=== PATIENT | male | born 1970 | race Two or more races ===

== ENCOUNTER 2025-09-13 23:56 | Emergency (ER) | payer SELFPAY ==
[~2025-09-13] VITALS: Ht 157.5 cm; Wt 58.1 kg
--- NOTE | 2025-09-14 00:20 | ECG ---
[facility] Test Date: 2025-09-14 Test Time: 00:05:28 Pat Name: ANTHONY VALVERDE Department: ED Room: Gender: Wafer Fabrication Operator: : 1970 Requested By: TRISTEN GONZALEZ Order Number: [id number] Reading MD: Rubens Crowley Measurements Intervals [place] Rate: 65 P: 54 GA: 154 QRS: 59 QRSD: 103 T: 62 QT: 381 QTc: 397 Interpretive Statements Sinus rhythm ST elevation suggests acute pericarditis Electronically Signed On 09-16-2025 17:18:42 PST by Rubens Crowley Please click the below link to view image of tracing.
--- NOTE | 2025-09-14 00:22 | ED.PDOC ---
History of Present Illness HPI Comments 54-year-old male who came to ER for chest pains. Patient states 30 minutes prior to arrival, while at bed, patient's noted that the patients arm has been extending upwards, his eyes rolling backwards and his jaw going sideways. Patient states he was awake when this happened and he is fully aware of it. P atient also complaining of left sided chest pains radiating to his left arm. Patient states he had similar symptoms 25 years ago, and he was diagnosed of a heart attack. REVIEW OF SYSTEMS: General: No fever, no chills, or fatigue HEENT: No sore throat, no earache, no congestion, no neck pain. Cardiac: + chest pain. No palpitations. Lungs: + shortness of breath, no cough. GI: No nausea, no vomiting, no diarrhea, no constipation, no abdominal pain : No dysuria, frequency, or urgency. No hematuria. Musculoskeletal: No joint pain , no joint swelling, no extremity edema. Skin: No rash, no itching. Neuro: No headache, no dizziness, no weakness (And as sated in HPI) PHYSICAL EXAM: General: Awake, alert and oriented. No acute distress. Skin: Skin in warm, dry and intact. Appropriate color for ethnicity. HEENT: The head is normocephalic and atraumatic. Conjunctivae are clear without exudates or hemorrhage. Sclera is non-icteric. Eyelids are normal in appearance without swelling or lesions. Oral mucosa is pink and moist Neck: The neck is supple with normal range of motion. No JVD. Cardiac: Heart rate and rhythm are normal. No murmurs, gallops, or rubs are auscultated. Respiratory: No signs of respiratory distress. Lung sounds are clear in all lobes bilaterally without rales, rhonchi, or wheezes. Abdominal: Abdomen is soft, non-tender without distention, guarding or rigidity. Bowel sounds are present and normoactive in all four quadrants. Extremities: Lower extremities without edema. Neurological: The patient is awake, alert and oriented to person, place, and time with normal speech. Speech is clear. There is no facial asymmetry. Normal gait Psychiatric: Appropriate mood and affect. Good judgement and insight. Chief Complaint: Chest Pain Time Seen by MD: 00:22 Reviewed Notes: Nurses Notes Allergies: Coded Allergies: NO KNOWN ALLERGIES (Unverified , 09/14/25) Information Source: Patient Mode of Arrival: Ambulatory Past Medical History PAST MEDICAL HISTORY: [place] Surgical History: Denies all surgeries Family History Family History: Reviewed,noncontributory to illness Social History Smoker: Non-Smoker Alcohol: Denies ETOH Use Drugs: Denies Drug Use Lives In: Home Was a procedure done? Was a procedure done?: No EKG EKG : Pulse Rate (adult): 65 Cardiac Rhythm: NSR Comments No STEMI Differential Dx Considerations may include: Differential diagnoses considered include acute ischemic coronary syndrome, aortic dissection, cardiac tamponade, mediastinitis, pulmonary embolus, pneumothorax, tension pneumothorax, esophageal rupture, coronary artery vasospasm, myocarditis, pericarditis, pneumonia, pulmonary edema, esophageal tear, pancreatitis, aortic stenosis, dilated cardiomyopathy, hypertrophic cardiomyopathy, mitral valve prolapse, malignancy, pleuritis, pneumomediastinum, primary pulmonary hypertension, cholecystitis, esophageal spasm, esophagus, gastritis, GERD, peptic ulcer disease, costochondritis, fibromyalgia, rib fracture, herpes zoster, radicular syndromes, thoracic outlet syndrome, somatization. X-Ray, Labs, Meds, VS Vital Signs Date Time Temp Pulse Resp B/P (MAP) Pulse Ox O2 Delivery O2 Flow Rate FiO2 09/14/25 04:42 63 18 09/14/25 04:40 97.6 63 18 92/61 (71) 96 97.6 09/14/25 01:24 74 20 99/60 (73) 100 09/14/25 01:11 60 09/14/25 00:22 65 09/14/25 00:05 65 09/14/25 00:01 75 16 113/72 98 Lab Test 09/14/25 02:52 09/14/25 01:14 09/14/25 00:09 Range/Units Troponin I High Sensitivity < 3 L < 3 L < 3 L </=54 ng/L White Blood Count 6.8 4.4-10.8 10^3/uL Red Blood Count 5.06 4.5-5.90 10^6/uL Hemoglobin 15.7 13.5-17.5 g/dL Hematocrit 46.9 41.0-53.0 % Mean Corpuscular Volume 92.6 80.0-100.0 fL Mean Corpuscular Hemoglobin 31.1 28.0-32.0 pg Mean Corpuscular Hemoglobin Concent 33.6 32.0-36.0 g/dL Red Cell Distribution Width 13.3 11.8-14.3 % Platelet Count 226 140-450 10^3/uL Mean Platelet Volume 7.6 6.9-10.8 fL Neutrophils (%) (Auto) 41.5 37.0-80.0 % Lymphocytes (%) (Auto) 38.7 10.0-50.0 % Monocytes (%) (Auto) 9.4 0.0-12.0 % Eosinophils (%) (Auto) 9.4 H 0.0-7.0 % Basophils (%) (Auto) 1.0 0.0-2.0 % Neutrophils # (Auto) 2.8 1.6-8.6 10 ^3/uL Lymphocytes # (Auto) 2.7 0.4-5.4 10 ^3/uL Monocytes # (Auto) 0.6 0-1.3 10 ^3/uL Eosinophils # (Auto) 0.6 0-0.8 10 ^3/uL Basophils # (Auto) 0.1 0-0.2 10 ^3/uL Nucleated Red Blood Cells 0.1 % Sodium Level 139 136-145 mmol/L Potassium Level 3.6 3.5-5.1 mmol/L Chloride Level 104 98-107 mmol/L Carbon Dioxide Level 30 20-31 mmol/L Anion Gap 5 5-15 Blood Urea Nitrogen 9 9-23 mg/dL Creatinine 0.87 0.700-1.30 mg/dL Glomerular Filtration Rate Calc 103 >90 mL/min BUN/Creatinine Ratio 10.3 10.0-20.0 Serum Glucose 108 H 74-106 mg/dL Calcium Level 9.7 8.7-10.4 mg/dL Total Bilirubin 0.5 0.2-1.0 mg/dL Aspartate Amino Transferase (AST) 12 L 13-40 U/L Alanine Aminotransferase (ALT) 16 7-40 U/L Alkaline Phosphatase 57 46-116 U/L Total Protein 7.2 5.7-8.2 g/dL Albumin 4.5 3.2-4.8 g/dL Current Medications Medications (Trade) Dose Ordered Sig/Noris Route Start Time Stop Time Status Last Admin Aspirin 324 mg ONCE ONCE PO 09/14/25 01:45 09/14/25 01:46 DC 09/14/25 01:42 Time of 1ST Reevaluation: 00:16 Reevaluation 1ST: Unchanged Patient Education/Counseling: Need For Follow Up Family Education/Counseling: No Family Present SEPSIS Sepsis Screen Date sepsis recognized/suspect: Sep 14, 2025 Time Sepsis recognized/suspect: 0002 Recent Procedure: No On Antibiotic Therapy: No Respiratory Rate >20: No Heart Rate >90: No Temp<36 C (96.8 F) or >38.3 C: No SBP <90 or MAP <65 mmHG: No New Acute Mental Status Change: No Is the patient on CPAP, BIPAP,: No Physician Orders Chest Portable (09/14/25 00:00) Electrocardigram (09/14/25 01:00) Electrocardigram (09/14/25 03:00) Vital Signs Date Time Temp Pulse Resp B/P (MAP) Pulse Ox O2 Delivery O2 Flow Rate FiO2 09/14/25 04:42 63 18 09/14/25 04:40 97.6 63 18 92/61 (71) 96 97.6 09/14/25 01:24 74 20 99/60 (73) 100 09/14/25 01:11 60 09/14/25 00:22 65 09/14/25 00:05 65 09/14/25 00:01 75 16 113/72 98 Laboratory Tests Test 09/14/25 00:09 White Blood Count 6.8 10^3/uL (4.4-10.8) Medications Medications Dose Ordered Sig/Noris Route Start Time Stop Time Status Last Admin Dose Admin Aspirin 324 mg ONCE ONCE PO 09/14/25 01:45 09/14/25 01:46 DC 09/14/25 01:42 Departure 1 Departure Time of Disposition: 04:55 Impression: Primary Impression: Chest pain Disposition: ADMITTED INPATIENT Condition: Stable Additional Instructions: INSTRUCCIONES DE MIKI DE Urgencias Instrucciones: Marizol atentamente todas las instrucciones proporcionadas en toni paquete. Aunque le hayan dado el miki del Departamento de Emergencias, esto no significa que tenga un "certificado de buena concha". Hoy no se cotton realizado ningn diagnstico definitivo para elle sntomas. Es posible que ests en proceso de desarrollar galileo enfermedad grave. Es por eso que debe regresar al servicio de urgencias sin falta si presenta algn sntoma nuevo o que empeora (especialmente si elle sntomas incluyen dolor en el pecho, dificultad para respirar, dolor abdominal, fiebre, dolor de belkis, confusin, dificultad para adry o caminar). Tambin es muy importante que consulte a un mdico de atencin primaria dentro de los prximos 3 a 5 david para realizar un seguimiento. Si no puede conseguir galileo pete, regrese al servicio de urgencias para galileo nueva evaluacin. Dolor en el pecho: Instrucciones de cuidado Tabla de contenido Descripcin general Storage Receipt Poster puedes cuidarte en casa? Cundo debes pedir ayuda? Crditos Descripcin general Hay muchas cosas que pueden causar dolor en el pecho. Algunas no son graves y mejoran por s solas en unos david. Sin embargo, algunos tipos de dolor en el pecho requieren ms pruebas y tratamiento. Es posible que bustillo mdico le haya recomendado galileo visita de seguimiento en los prximos david. Si no mejora, es posible que necesite ms pruebas o tratamiento. Aunque bustillo mdico le haya dado de miki, debe estar atento a cualquier problema. El mdico le realiz galileo revisin exhaustiva, yecenia a veces pueden surgir problemas ms adelante. Si presenta sntomas nuevos o si estos no mejoran, busque atencin mdica de inmediato. Si tiene un dolor o presin en el pecho peor o diferente que dura ms de 5 minutos o si se desmay (perdi el conocimiento), llame al 911 o busque otra ayuda de emergencia de inmediato. Galileo visita mdica es solo un paso en bustillo tratamiento. Incluso si se siente mejor, debe seguir las recomendaciones de bustillo mdico, marcelo asistir a todas las citas de seguimiento sugeridas y clare los medicamentos exactamente marcelo se le indique. [place] le ayudar a recuperarse y a prevenir problemas futuros. Storage Receipt Poster puedes cuidarte en casa? Descansa hasta que te sientas mejor. [place] bustillo medicamento exactamente marcelo se lo recetaron. Llame a bustillo mdico si tyson que tiene algn problema con bustillo medicamento. No conduzca despus de clare un analgsico recetado. Cundo debes pedir ayuda? Llame al 911 si: Te desmayaste (perdiste el conocimiento). Tienes dificultad grave para respirar. Tiene sntomas de un ataque cardaco. Estos pueden incluir: Dolor o presin en el pecho, o galileo sensacin extraa en el pecho. Transpiracin. Dificultad para respirar. Nuseas o vmitos. Dolor, presin o galileo sensacin extraa en la espalda, el kathy, la mandbula o la parte superior del abdomen o en hong o ambos hombros o brazos. Mareo o debilidad repentina. Un ritmo cardaco rpido o irregular. Despus de llamar al 911 , el operador podra indicarle que mastique galileo aspirina para adultos o de 2 a 4 aspirinas de dosis baja. Espere la ambulancia. No intente conducir. Llame a bustillo mdico ahora o busque atencin mdica inmediata si: Tienes alguna dificultad para respirar. Tiene un dolor en el pecho nuevo o diferente. Se siente mareado o aturdido o marcelo si se pudiera desmayar. Preste atencin de cerca a los cambios en bustillo concha y asegrese de comunicarse con bustillo mdico si no mejora marcelo se esperaba. Crditos para el dolor de pecho: Instrucciones de cuidado Actualizado al: 2023 Autor: Personal de [facility] Junta de revisin clnica Toda la educacin de [facility] es revisada por un equipo que incluye mdicos, enfermeras, profesionales avanzados, dietistas registrados y otros profesionales de la concha. Es muy importante que te comuniques con tu mdico de atencin primaria (PCP). Puedes llamar a tu compaa de seguros o verificar tu tarjeta de seguro para averiguar akosua es tu PCP. O llama al [phone] para programar galileo pete con un nuevo proveedor de atencin primaria. POR QU NECESITAS UN PCP: Establecerse y adry regularmente a un PCP y someterse a exmenes de rutina son vitales para mantener galileo buena concha. Tu PCP acta marcelo tu principal socio en concha, ayudndote a mantenerte fritz, gestionar condiciones crnicas y detectar problemas potenciales a tiempo. Los exmenes de rutina, marcelo mamografas o colonoscopias, pueden detectar enfermedades marcelo el cncer temprano, cuando el tratamiento suele ser ms efectivo. Galileo prueba de deteccin es marcelo un chequeo rpido que hace tu mdico para adry si hay problemas comenzando en tu cuerpo, incluso cuando te sientes murray, para poder encontrarlos a tiempo, cuando son ms fciles de solucionar. Por qu establecer galileo relacin con un mdico de atencin primaria (PCP)? Cuidado Preventivo: Bustillo mdico de atencin primaria se centra en prevenir enfermedades a travs de chequeos regulares, vacunaciones y consejos de concha adaptados a elle necesidades. Manejo de Enfermedades Crnicas: Si tiene galileo condicin crnica, marcelo diabetes o presin arterial miki, bustillo mdico de atencin primaria puede ayudarle a manejarla de manera efectiva a travs de monitoreo, manejo de medicamentos y recomendaciones de estilo de yoly. Deteccin Temprana: Las visitas regulares permiten que bustillo mdico de atencin primaria siga bustillo concha a lo leatha del tiempo, identifique cambios sutiles y solicite exmenes o pruebas necesarias para detectar problemas potenciales temprano. Recurso de Confianza: Bustillo mdico de atencin primaria llega a conocerle, bustillo historial mdico y elle preocupaciones, convirtindose en un recurso de confianza para todas elle preguntas relacionadas con la concha. Referencias: Si necesita atencin especializada, bustillo mdico de atencin primaria le referir a los especialistas adecuados y ayudar a coordinar bustillo atencin. Continuidad de la Atencin: Bustillo mdico de atencin primaria asegura que bustillo atencin mdica est coordinada, especialmente despus de estancias en el hospital o visitas a otros especialistas. Por qu son importantes las pruebas de rutina? Deteccin temprana: Muchas enfermedades graves marcelo el cncer, la diabetes y las enfermedades del corazn pueden tratarse con mayor xito cuando se detectan a tiempo. Las pruebas de deteccin marcelo los anlisis de laboratorio, los controles de presin arterial, las mamografas, las colonoscopias y los anlisis de Papanicolaou estn diseadas para detectar estas enfermedades de manera temprana. Prevencin de enfermedades: Algunas pruebas de deteccin pueden ayudar a prevenir el desarrollo de enfermedades. Tranquilidad: Saber que ests al da con tus pruebas de deteccin puede proporcionar tranquilidad y reducir la ansiedad sobre posibles problemas de concha. En resumen, establecer galileo relacin con un mdico de atencin primaria y seguir elle recomendaciones para exmenes de rutina es importante para mantenerte saludable y gestionar tu concha de manera efectiva. Es galileo inversin en tu bienestar que puede resultar beneficiosa a leatha plazo. Comments 54-year-old male with left-sided chest pain. Serial EKG negative for signs of ischemia. Serial High sensitivity troponin negative. CXR shows no acute process. Presentation not suggestive of acute coronary syndrome, pulmonary embolism or aortic dissection. Patient improved at time of discharge. Patient has not been hypoxic, in respiratory distress or dyspneic during the ED observation. Patient able to ambulate without difficulty. Patient felt stable for discharge to follow up with PCP promptly. Patient advised to return to the ED with any new, worsening or concerning symptoms or inability to follow up with PCP. Critical Care Note Critical Care Time?: No Stability Stability form required: No Heart Score Heart Score: Heart Score Response (Comments) Value History N/A 0 EKG N/A 0 Age N/A 0 Risk Factors N/A 0 Troponin N/A 0 Total 0 I personally scribed for TRISTEN GONZALEZ MD ([email or web address]) on 09/14/25 at 00:22. Electronically submitted by Jose R Calderón ([email or web address]). TRISTEN GONZALEZ MD Sep 14, 2025 00:22
[2025-09-14 00:25] LABS: Hematocrit 46.9 % (41.0-53.0); Hemoglobin 15.7 g/dL (13.5-17.5); Mean Corpuscular Hemoglobin 31.1 pg (28.0-32.0); Mean Corpuscular Volume 92.6 fL (80.0-100.0); Nucleated Red Blood Cells % 0.1 %
[2025-09-14 00:41] LABS: Alanine Aminotransferase 16 U/L (7-40); Albumin 4.5 g/dL (3.2-4.8); Alkaline Phosphatase 57 U/L (46-116); Anion Gap 5 (5-15); BUN/Creatinine Ratio 10.3 (10.0-20.0); Bilirubin, Total 0.5 mg/dL (0.2-1.0); Blood Urea Nitrogen 9 mg/dL (9-23); Calcium 9.7 mg/dL (8.7-10.4); Carbon Dioxide 30 mmol/L (20-31); Chloride 104 mmol/L (98-107); Glucose 108 mg/dL (74-106); Potassium 3.6 mmol/L (3.5-5.1); Sodium 139 mmol/L (136-145); Total Protein 7.2 g/dL (5.7-8.2)
--- NOTE | 2025-09-14 00:42 | DVH ---
CHEST RADIOGRAPH INDICATION: CHEST PAIN TECHNIQUE: Single frontal view of the chest was obtained COMPARISON: None FINDINGS: Lines and Tubes: None Lungs: Clear Pleura: No effusion. No pneumothorax. Cardiomediastinal contours: Unremarkable Bones: Unremarkable IMPRESSION: 1. No acute disease.
[2025-09-14 04:40] VITALS: BP 92/61; TEMP 97.6; O2SAT 96
[2025-09-14 04:42] VITALS: PULSE 63; RESP 18
--- NOTE | 2025-09-14 12:50 | ECG ---
[facility] Test Date: 2025-09-14 Test Time: 01:11:31 Pat Name: ANTHONY VALVERDE Department: ED Room: Gender: M Executive Sales Assistant: BETH : 1970 Requested By: TRISTEN GONZALEZ Order Number: [id number] Reading MD: Rubens Crowley Measurements Intervals [place] Rate: 60 P: 55 LA: 150 QRS: 51 QRSD: 100 T: 54 QT: 388 QTc: 388 Interpretive Statements Sinus rhythm Lateral infarct, acute (LAD) ST elevation, consider inferior injury Electronically Signed On 09-16-2025 17:18:47 PST by Rubens Crowley Please click the below link to view image of tracing.
== END 2025-09-14 05:07 | disposition home or self-care (01) ==
LOC: ER 23:56
DX: R07.89 Other chest pain (principal); M79.602 Pain in left arm
CPT/HCPCS: 36415; 71045; 80053; 84484; 85025; 93005